=== PATIENT | female | born 1965 | race Caucasian/White ===

== ENCOUNTER 2017-10-03 10:41 | Day surgery (SDC) | payer OTHER ==
[~2017-10-03 10:41] MED LIST: ATIVAN0.5 M1 PO; ATIVAN0.5 MG PO; BANOPHEN25 M1 PO; CHLORPROMAZINE PO; CHLORPROMAZINE100 MG PO; FUSION CAPSULE1 EACH PO; GAS-X62.5 MG PO; RESTORIL15 MG PO; RESTORIL30 M1 PO; SERTRALINE PO; [UNRECOGNIZED DRUG - OTHER] PO
== END 2017-10-03 15:55 | disposition home or self-care (01) ==
LOC: AMB-ENDOS 10:41
DX: K92.1 Melena (principal); R59.0 Localized enlarged lymph nodes; Z85.038 Personal history of other malignant neoplasm of large intestine